=== PATIENT | female | born 1980 | race Caucasian/White ===

== ENCOUNTER 2017-03-02 17:43 | Emergency (ER) | payer OTHER ==
[2017-03-02 18:54] LABS: HEMOGLOBIN 13.7 gm/dl (12.3-15.3); RED BLOOD COUNT 4.32 M/UL (4.00-5.10); WHITE BLOOD COUNT 8.8 K/UL (4.5-11.0)
[2017-03-02 19:14] LABS: BUN/CREATININE RATIO 19 (0-10)
== END 2017-03-02 22:49 | disposition home or self-care (01) ==
LOC: ER1 17:43
PROVIDERS: Emergency Medicine
DX: N30.00 Acute cystitis without hematuria (principal); N20.0 Calculus of kidney; F17.200 Nicotine dependence, unspecified, uncomplicated
CPT/HCPCS: 36415; 80053; 81001; 84703; 85025; 87086; 96361; 96374; 96375; 99284; J2270; J2405